=== PATIENT | female | born 1980 | race African-American/Black ===

== ENCOUNTER 2018-02-19 11:19 | Inpatient (IN) | payer SELFPAY ==
[2018-02-19] MEDS ORDERED: Acetaminophen 500 MG TAB ONE (12:05)
[2018-02-19 12:23] LABS: CKMB 0.9 ng/mL (0-6.6); Troponin I Less than 0.010 ng/mL (< 0.028)
[2018-02-19] MEDS ORDERED: Acetaminophen 650 MG Suppository PR PRN (13:26)
[2018-02-19] MEDS ORDERED: Acetaminophen 325 MG TAB PO PRN (13:26)
[2018-02-19] MEDS ORDERED: Nitroglycerin 0.4 MG TAB (25 Tab Bottle) PO PRN (13:26)
[2018-02-19] MEDS ORDERED: Potassium Chloride 20 MEQ TAB PO SCH (14:00)
--- NOTE | 2018-02-19 14:43 | HP ---
PRIMARY CARE PROVIDER: None. CHIEF COMPLAINT: Chest pain. HISTORY OF PRESENT ILLNESS: Ms. Da Silva is a pleasant 37-year-old lady who was seen at [facility] on 02/19/2018 following transfer from [place]. She complains of chest pain over the last 2 days. The pain is retrosternal, heaviness like sensation , 8/10 at its worst, currently 0 out of 10, on and off. No known aggravating or relieving factors, a ccompanied by shortness of breath or lightheadedness, but not by nausea, vomiting, cough or fever. T he pain is radiating to the back. All other systems reviewed and found to be negative. PAST MEDICAL HISTORY: Significant for hypertension. She has not taken her medications in several mo nths. PAST SURGICAL HISTORY: None. FAMILY HISTORY: Coronary artery disease in her father. ALLERGIES: No known drug allergies. CURRENT MEDICATIONS: None. SOCIAL HISTORY: Patient smokes half a pack of cigarettes a day. She drinks alcohol occasionally. S he denies any recreational drug use. PHYSICAL EXAMINATION: GENERAL: Ms. Da Silva is awake and alert, not in acute distress. VITAL SIGNS: Blood pressure is 153/103, pulse is 90. She is breathing at rate of 20 and saturating 100% on 2 liters of oxygen. She is afebrile. At [place], she had a blood pressure of 161/115 a nd pulse of 108. EYES: No scleral icterus. No conjunctival pallor. ENT: Moist mucosal membranes, no oropharyngeal erythema or exudates. NECK: Supple, nontender, normal range of movement. Trachea is midline. RESPIRATORY: Accessory muscles of breathing are not active. Chest wall movements are symmetric bila terally. LUNGS: Clear to auscultation without wheeze, rhonchi or crepitations. ABDOMEN: Soft, nontender, bowel sounds heard, no hepatomegaly, no splenomegaly. CARDIOVASCULAR: S1 and S2 are heard, regular. Peripheral pulses palpable. No carotid bruit, no per icardial rub. NEUROLOGIC: Cranial nerves II-XII intact. Deep tendon reflexes are 2+. MUSCULOSKELETAL: Power is 5/5 in all 4 extremities. SKIN: No rashes or subcutaneous nodules. LYMPHATIC: No cervical lymphadenopathy. PSYCHIATRIC: Normal mood, normal affect, patient is oriented to person, place, and time. LABORATORY DATA: Ms. Da Silva' labs and investigations were reviewed. I reviewed her electrocardiogram , which shows normal sinus rhythm, nonspecific ST changes, and no ST segment elevations. I also revi ewed her chest x-ray, which does not show any pulmonary infiltrates. She has D-dimer of 0.38, unrema rkable CBC, normal sodium, decreased potassium of 3.3, normal creatinine, elevated AST of 41, but oth erwise unremarkable liver profile and normal BNP. Troponin I is normal. ASSESSMENT AND PLAN: Ms. Da Silva is a pleasant 37-year-old lady who was seen at [facility] on 02/19/2018. Her problem list includes: 1. Chest pain: Etiology is unclear at this time. Patient will be admitted to the hospital on obser vation status for telemetry monitoring and nuclear stress test. She also received nitrates as needed . 2. Hypertension: Patient is currently not taking any antihypertensives. We will start her on p.r.n . antihypertensives as well as scheduled antihypertensives and monitor vital signs and titrate antihy pertensives as needed. 3. Hypokalemia. 4. Replace potassium. 5. Tobacco abuse: Patient has been advised to quit tobacco use. She will be started on nicotine re placement patch. 6. Medication noncompliance. Patient counseled regarding being compliant with her medications. LEVEL OF RISK: High. LEVEL OF COMPLEXITY: High.
[2018-02-19] MEDS ORDERED: Aspirin 325 MG TAB PO SCH (14:45)
[2018-02-19 14:57] LABS: BHCG - Serum Negative (NEGATIVE); Pregs Control Background? CLEAR/WHITE (CLR/WHITE); Pregs Control Bar Appear? YES (CONTROL BAR)
[2018-02-19 15:49] LABS: Troponin I Less than 0.010 ng/mL (< 0.028)
[2018-02-19 17:13] VITALS: BMI 33.3
[2018-02-19] MEDS: Nicotine 14 MG PATCH TD SCH (17:32)
[2018-02-19] MEDS ORDERED: hydrALAZINE 20 MG/ML VIAL SLOW IVP PRN (19:06)
[2018-02-19] MEDS ORDERED: Amlodipine 5 MG TAB PO SCH (19:15)
[2018-02-20] MEDS ORDERED: Metoprolol Tartrate 5 MG/5 ML VIAL IVP SCH (04:45)
[2018-02-20 05:27] LABS: #Eosinphils 0.1 thou/uL (0.0-0.7); #Lymphocytes 1.9 thou/uL (1.20-3.40); #Monocytes 0.6 thou/uL (0.11-0.59); #Neutrophils 2.7 thou/uL (1.40-6.50); %Basophils 0.3 % (0.0-1.0); %Eosinophils 1.7 % (0.0-10.0); %Lymphocytes 35.3 % (21.0-51.0); %Monocytes 11.7 % (0.0-10.0); Hemoglobin 15.8 g/dL (12.0-16.0); Mean Corpuscular HGB CONC 33.9 g/dL (32.0-36.0); Mean Corpuscular Hemoglobin 34.5 pg (27.0-31.0); Mean Platelet Volume 6.6 fL (7.4-10.4); Platelet Count 256 thou/uL (130-400); RBC Distribution Width 10.8 % (11.5-14.5); Red Blood Cell (RBC) Count 4.58 mill/uL (4.20-5.40); White Blood Cell (WBC) Count 5.4 thou/uL (4.8-10.8)
[2018-02-20 05:39] LABS: Anion Gap 14 mmol/L (10-20); BUN (Urea Nitrogen) 7 mg/dL (7.0-18.7); Calc. Creatinine Clearance 163 mL/min (70-130); Calcium 9.6 mg/dL (7.8-10.44); Carbon Dioxide 27 mmol/L (22-29); Chloride 100 mmol/L (98-107); Estimated GFR-MDRD Greater than 90; Glucose 87 mg/dL (70-105); Potassium 3.6 mmol/L (3.5-5.1); Sodium 137 mmol/L (136-145)
[2018-02-20] MEDS ORDERED: Carvedilol 3.125 MG TAB PO SCH (09:00)
[2018-02-20] MEDS ORDERED: Amlodipine 5 MG TAB PO SCH (09:00)
[2018-02-20] MEDS: Lisinopril 20 MG TAB PO SCH (11:17)
[2018-02-20] MEDS: Hydrochlorothiazide 25 MG TAB PO SCH (11:18)
[2018-02-20] MEDS ORDERED: Enalaprilat Dihydrate 1.25 MG/ML VIAL SLOW IVP PRN (12:53)
[2018-02-20] MEDS: Enalaprilat Dihydrate 1.25 MG/ML VIAL SLOW IVP PRN ×2 (13:10→19:55)
--- NOTE | 2018-02-20 14:27 | PDOC.PN ---
- Subjective Encounter Start Date: 02/20/18 Encounter Start Time: 14:26 Subjective: has headache ,o/w feels better. -: no Chest pain/SOB - Objective MAR Reviewed: Yes Vital Signs & Weight: Vital Signs (12 hours) Temp Pulse Resp BP BP Pulse Ox 02/20/18 14:15 186/129 H 02/20/18 13:10 167/113 H 02/20/18 11:18 82 02/20/18 11:17 167/113 H 02/20/18 11:08 98.0 F 94 18 184/130 H 98 02/20/18 08:11 97.7 F 82 18 02/20/18 07:20 97.7 F 110 H 18 181/133 H 98 02/20/18 06:29 82 167/113 H 02/20/18 06:07 82 176/122 H 02/20/18 05:23 88 180/114 H 02/20/18 05:12 92 206/129 H 02/20/18 05:06 116 H 195/119 H 02/20/18 04:20 112 H 16 197/128 H 96 Weight Weight 188 lb I&O: 02/19/18 02/20/18 02/21/18 06:59 06:59 06:59 Intake Total 600 Output Total 100 Balance 500 Result Diagrams: 02/20/18 04:07 02/20/18 04:07 Additional Labs: Laboratory Tests 02/19/18 02/19/18 02/19/18 11:45 15:14 17:46 Troponin I Less than 0.010 Less than 0.010 0.010 Phys Exam - Physical Examination Constitutional: NAD HEENT: PERRLA, moist MMs, sclera anicteric, oral pharynx no lesions Neck: no nodes, no JVD, supple, full ROM Respiratory: no wheezing, no rales, no rhonchi, clear to auscultation bilateral Cardiovascular: RRR, no significant murmur, no rub Gastrointestinal: soft, non-tender, no distention, positive bowel sounds Musculoskeletal: no edema, pulses present Neurological: non-focal, normal sensation, moves all 4 limbs Psychiatric: normal affect, A&O x 3 Skin: no rash Dx/Plan (1) Hypertensive urgency Code(s): I16.0 - HYPERTENSIVE URGENCY Status: Acute (2) Chest pain Code(s): R07.9 - CHEST PAIN, UNSPECIFIED Status: Acute (3) Essential hypertension Code(s): I10 - ESSENTIAL (PRIMARY) HYPERTENSION Status: Chronic (4) Obesity (BMI 30.0-34.9) Code(s): E66.9 - OBESITY, UNSPECIFIED Status: Chronic (5) Tobacco abuse Code(s): Z72.0 - TOBACCO USE Status: Chronic - Plan plan discussed w/ family, DVT proph w/SCDs Stress test can not be done due to uncontrolled HTN. -: Will start on Po meds including BB and monitor -: cont PRN meds.care discussed w pt & Mother -: Target SBP aroun [id number] & DBP 80-90.avoid aggressive lowering -: not safe for Dc given severe uncontrolled HTn despite max meds * Change to Inpt status. * Will attempt stress test tomorrow if BP improves,if not as an Outpt * Unlikley cardiac CP. * HD stable. * . Review of Systems - Review of Systems Constitutional: negative: fever, chills, sweats, weakness, malaise, other Respiratory: negative: Cough, Dry, Shortness of Breath, Hemoptysis, SOB with Excertion, Pleuritic Pain, Sputum, Wheezing Cardiovascular: negative: chest pain, palpitations, orthopnea, paroxysmal nocturnal dyspnea, edema, light headedness, other Gastrointestinal: negative: Nausea, Vomiting, Abdominal Pain, Diarrhea, Constipation, Melena, Hematochezia, Other Genitourinary: negative: Dysuria, Frequency, Incontinence, Hematuria, Retention , Other Musculoskeletal: negative: Neck Pain, Shoulder Pain, Arm Pain, Back Pain, Hand Pain, Leg Pain, Foot Pain, Other Skin: negative: Rash, Lesions, Lavell, Bruising, Other Neurological: negative: Weakness, Numbness, Incoordination, Change in Speech, Confusion, Seizures, Other - Medications/Allergies Allergies/Adverse Reactions: Allergies Allergy/AdvReac Type Severity Reaction Status Date / Time No Known Drug Allergies Allergy Verified 02/19/18 13:25 Medications: Current Medications Acetaminophen (Tylenol) 650 mg PO Q4H PRN PRN Reason: Headache/Fever or Pain Last Admin: 02/20/18 13:09 Dose: 650 mg Acetaminophen (Tylenol) 650 mg NE Q4H PRN PRN Reason: Headache/Fever or Pain Amlodipine Besylate (Norvasc) 5 mg PO DAILY [facility] Last Admin: 02/20/18 11:18 Dose: 5 mg Aspirin (Aspirin) 325 mg PO DAILY [facility] Carvedilol (Coreg) 6.25 mg PO BID [facility] Enalaprilat (Vasotec) 1.25 mg SLOW IVP Q6H PRN PRN Reason: sbp>160 Last Admin: 02/20/18 13:10 Dose: 1.25 mg Enoxaparin Sodium (Lovenox) 40 mg SC 0900 [facility] Hydralazine HCl (Apresoline) 10 mg SLOW IVP Q6H PRN PRN Reason: SBP>170 Last Admin: 02/19/18 21:49 Dose: 10 mg Hydrochlorothiazide (Hydrochlorothiazide) 12.5 mg PO DAILY [facility] Last Admin: 02/20/18 11:18 Dose: 12.5 mg Lisinopril (Zestril) 20 mg PO DAILY [facility] Last Admin: 02/20/18 11:17 Dose: 20 mg Nicotine (Nicoderm Patch) 14 mg TD Q24HR [facility] Last Admin: 02/19/18 17:32 Dose: Not Given Nitroglycerin (Nitrostat) 0.4 mg PO Q5MIN PRN PRN Reason: Chest Pain
[2018-02-20] MEDS: Aspirin 325 MG TAB PO SCH (14:59)
[2018-02-20] MEDS: Enoxaparin Sodium 40 MG/0.4 ML SYRINGE SC SCH (14:59)
[2018-02-20] MEDS: Nicotine 14 MG PATCH TD SCH (14:59)
[2018-02-20] MEDS ORDERED: Metoprolol Tartrate 5 MG/5 ML VIAL IVP PRN (16:15)
[2018-02-20] MEDS: Carvedilol 6.25 MG TAB PO SCH (19:27)
[2018-02-20] MEDS ORDERED: cloNIDine 0.1 MG TAB PO PRN (21:24)
[2018-02-20] MEDS ORDERED: NIFEdipine XL 30 MG TAB PO SCH (21:30)
[2018-02-21] MEDS: Enalaprilat Dihydrate 1.25 MG/ML VIAL SLOW IVP PRN ×2 (04:45→12:36)
[2018-02-21] MEDS: Lisinopril 20 MG TAB PO SCH (08:19)
[2018-02-21] MEDS: Hydrochlorothiazide 25 MG TAB PO SCH (08:19)
[2018-02-21] MEDS: Carvedilol 6.25 MG TAB PO SCH (08:19)
[2018-02-21] MEDS: Aspirin 325 MG TAB PO SCH (08:19)
[2018-02-21] MEDS: Enoxaparin Sodium 40 MG/0.4 ML SYRINGE SC SCH (08:20)
[2018-02-21] MEDS ORDERED: NIFEdipine XL 30 MG TAB PO SCH (09:00)
[2018-02-21] MEDS: Nicotine 14 MG PATCH TD SCH (12:32)
--- NOTE | 2018-02-21 12:56 | PDOC.PN ---
- Subjective Encounter Start Date: 02/21/18 Encounter Start Time: 12:53 Subjective: feels well. no chest pain or headache - Objective MAR Reviewed: Yes Vital Signs & Weight: Vital Signs (12 hours) Temp Pulse Resp BP BP Pulse Ox 02/21/18 12:36 162/100 H 02/21/18 11:56 98.1 F 87 16 162/110 H 97 02/21/18 08:20 78 02/21/18 08:19 169/117 H 02/21/18 07:40 98.0 F 78 16 02/21/18 07:28 98.5 F 95 16 148/105 H 96 02/21/18 06:16 78 166/110 H 02/21/18 04:45 169/117 H 02/21/18 03:59 98.3 F 87 18 169/117 H 97 Weight Weight 188 lb I&O: 02/20/18 02/21/18 02/22/18 06:59 06:59 06:59 Intake Total 600 1360 Output Total 100 Balance 500 1360 Result Diagrams: 02/20/18 04:07 02/20/18 04:07 Phys Exam - Physical Examination Constitutional: NAD HEENT: PERRLA, moist MMs, sclera anicteric, oral pharynx no lesions Neck: no nodes, no JVD, supple, full ROM Respiratory: no wheezing, no rales, no rhonchi, clear to auscultation bilateral Cardiovascular: RRR, no significant murmur, no rub Gastrointestinal: soft, non-tender, no distention, positive bowel sounds Musculoskeletal: no edema, pulses present Neurological: non-focal, normal sensation, moves all 4 limbs Psychiatric: normal affect, A&O x 3 Skin: no rash Dx/Plan (1) Hypertensive urgency Code(s): I16.0 - HYPERTENSIVE URGENCY Status: Acute Comment: improved control w meds. (2) Chest pain Code(s): R07.9 - CHEST PAIN, UNSPECIFIED Status: Resolved Comment: ECHO done ,results pending (3) Essential hypertension Code(s): I10 - ESSENTIAL (PRIMARY) HYPERTENSION Status: Chronic (4) Obesity (BMI 30.0-34.9) Code(s): E66.9 - OBESITY, UNSPECIFIED Status: Chronic (5) Tobacco abuse Code(s): Z72.0 - TOBACCO USE Status: Chronic - Plan DVT proph w/SCDs cont current meds w clonidine prn for intermittent HTN -: Op f/u w PCP -: Pt eager to leave despite educating about risk of high BP -: echo results pending * . Review of Systems - Review of Systems Constitutional: negative: fever, chills, sweats, weakness, malaise, other ENT: negative: Ear Pain, Ear Discharge, Nose Pain, Nose Discharge, Nose Congestion, Mouth Pain, Mouth Swelling, Throat Pain, Throat Swelling, Other Respiratory: negative: Cough, Dry, Shortness of Breath, Hemoptysis, SOB with Excertion, Pleuritic Pain, Sputum, Wheezing Cardiovascular: negative: chest pain, palpitations, orthopnea, paroxysmal nocturnal dyspnea, edema, light headedness, other Gastrointestinal: negative: Nausea, Vomiting, Abdominal Pain, Diarrhea, Constipation, Melena, Hematochezia, Other Genitourinary: negative: Dysuria, Frequency, Incontinence, Hematuria, Retention , Other Musculoskeletal: negative: Neck Pain, Shoulder Pain, Arm Pain, Back Pain, Hand Pain, Leg Pain, Foot Pain, Other Skin: negative: Rash, Lesions, Lavell, Bruising, Other Neurological: negative: Weakness, Numbness, Incoordination, Change in Speech, Confusion, Seizures, Other - Medications/Allergies Allergies/Adverse Reactions: Allergies Allergy/AdvReac Type Severity Reaction Status Date / Time No Known Drug Allergies Allergy Verified 02/19/18 13:25 Medications: Current Medications Acetaminophen (Tylenol) 650 mg PO Q4H PRN PRN Reason: Headache/Fever or Pain Last Admin: 02/20/18 13:09 Dose: 650 mg Acetaminophen (Tylenol) 650 mg NV Q4H PRN PRN Reason: Headache/Fever or Pain Aspirin (Aspirin) 325 mg PO DAILY [facility] Last Admin: 02/21/18 08:19 Dose: 325 mg Carvedilol (Coreg) 6.25 mg PO BID [facility] Last Admin: 02/21/18 08:19 Dose: 6.25 mg Clonidine (Catapres) 0.1 mg PO Q4H PRN PRN Reason: Systolic BP > 180 Enalaprilat (Vasotec) 1.25 mg SLOW IVP Q6H PRN PRN Reason: sbp>160 Last Admin: 02/21/18 12:36 Dose: 1.25 mg Enoxaparin Sodium (Lovenox) 40 mg SC 0900 [facility] Last Admin: 02/21/18 08:20 Dose: 40 mg Hydralazine HCl (Apresoline) 10 mg SLOW IVP Q6H PRN PRN Reason: SBP>170 Last Admin: 02/19/18 21:49 Dose: 10 mg Hydrochlorothiazide (Hydrochlorothiazide) 12.5 mg PO DAILY [facility] Last Admin: 02/21/18 08:19 Dose: 12.5 mg Lisinopril (Zestril) 20 mg PO DAILY [facility] Last Admin: 02/21/18 08:19 Dose: 20 mg Metoprolol Tartrate (Lopressor) 5 mg IVP Q4H PRN PRN Reason: SBP>180 Last Admin: 02/20/18 16:26 Dose: 5 mg Nicotine (Nicoderm Patch) 14 mg TD Q24HR [facility] Last Admin: 02/21/18 12:32 Dose: Not Given Nifedipine (Procardia Xl) 30 mg PO BID [facility] Last Admin: 02/21/18 08:20 Dose: 30 mg Nitroglycerin (Nitrostat) 0.4 mg PO Q5MIN PRN PRN Reason: Chest Pain
[2018-02-21 15:48] VITALS: BP 145/109; TEMP 97.4
--- NOTE | 2018-02-22 03:50 | DIS ---
DATE OF ADMISSION: 02/19/2018 DATE OF DISCHARGE: 02/21/2018 PRIMARY CARE PHYSICIAN: Neil Neal MD CONDITION AT THE TIME OF DISCHARGE: Stable and improved. DISCHARGE DIAGNOSES: 1. Uncontrolled hypertension. 2. Chest pain secondary to uncontrolled hypertension, acute coronary syndrome ruled out. 3. Medication noncompliance. DISCHARGE MEDICATIONS: Nicotine patch 14 mg as needed, Procardia-XL 30 mg p.o. b.i.d., lisinopril 20 mg daily, hydrochlorothiazide 12.5 mg daily, carvedilol 6.25 mg p.o. b.i.d., clonidine 0.1 mg p.o. q .4 hours as needed for systolic blood pressure more than 160 and/or diastolic more than 100. CONSULTATIONS: None. PROCEDURES: 1. Transthoracic echocardiogram, results pending. 2. Stress test was ordered, but could not be done because of uncontrolled hypertension while in the hospital. HISTORY OF PRESENT ILLNESS: Ms. Da Silva is a 37-year-old female with known history of hypertension, wa s noncompliant with the medication, who presented to the emergency room with chest pain and was admit huseyin for ACS workup. Upon presentation, her blood pressure was 153/103. EKG was rather benign. Ches t x-ray normal and cardiac enzyme was normal. Please see admission history and physical for further details. HOSPITAL COURSE: The patient had uncontrolled hypertension throughout the hospitalization requiring addition and titration of multiple blood pressure medications. A stress test was ordered, but it cou ld not be done because of persistent hypertension, so it was canceled. The patient did undergo echoc ardiogram. Serial cardiac enzymes were done and were negative and other than the uncontrolled blood pressure, the patient was asymptomatic and the chest pain did not re-occur. This morning, she was seen and examined and even though her blood pressure is under better control, s he is still having diastolic hypertension, but she is not ready to stay in the hospital anymore. She is ready to leave A. As she is asymptomatic and agreeable to take her blood pressure medications as indicated and because we have achieved a better blood pressure control in the hospital, we are not trying to aggressively lower the blood pressure in the acute setting. She is instructed to check he r blood pressure at home and take clonidine as needed for higher blood pressures as above. Otherwise , she will start the medications as prescribed and follow up with Dr. Neil Head in the outpatient s etting as soon as possible. She was seen and examined prior to discharge. Please see Hospitalist progress note from today's date for further detail including [id number] interaction.
== END 2018-02-21 17:45 | disposition home or self-care (01) | DRG 305 ==
LOC: ERS 11:19 → OBSVTOIN 13:00 → ERHOLD 13:00 → 2SW 16:58
PROVIDERS: ADMIT Internal Medicine; ATTEND Internal Medicine
DX: I16.0 Hypertensive urgency (principal); I10 Essential (primary) hypertension; Z91.14 Patient's other noncompliance with medication regimen; E66.9 Obesity, unspecified; Z68.33 Body mass index [BMI] 33.0-33.9, adult; F17.210 Nicotine dependence, cigarettes, uncomplicated
CPT/HCPCS: 36415; 80048; 84703; 85025; 85379; 93005; 93306; 94760; J0360; J1650